=== PATIENT | male | born 1990 | race Caucasian/White ===

== ENCOUNTER 2024-03-21 10:31 | Outpatient (RCR) | payer OTHER, SELFPAY ==
--- NOTE | 2024-03-21 11:50 | OT.OPOE ---
OT Outpatient Ortho Eval OT Outpatient Ortho Eval* Start: 03/21/24 09:13 Freq: Status: Active Protocol: Document 03/21/24 09:14 ROCIO (Rec: 03/21/24 11:45 [email or web address] [id number]) E-signed By Maddy Dunlap, OTR/L, CLT OT OP Ortho Eval Details Complexity Complexity Medium Insurance Information Other Insurance [facility] Outpatient History/Precautions Current Condition/Medical Diagnosis Referring Provider Dr. Flo Calvert Medical Diagnoses S61.411A, Unspecified injury of right wrist, hand and finger(s), initial encounter S69.91XA, Laceration without foreign body of right hand, initial encounter, Treatment Diagnosis Pain in R hand (thumb and middle finger) M79.641 Localized edema R60.0 Date of Onset 03/09/24 Other Precautions Thumb sutures removed by Ortho provider in clinic 03/19/24. *Recommended removing middle finger sutures in a few days. Patient was instructed to discontinue the splints and initiate finger range of motion exercises. He may return to work, but should avoid any heavy lifting or grasping until lacerations of completely healed. Other Conditions Laceration of right middle finger (Acute) S61.212A - Laceration without foreign body of right middle finger without damage to nail, initial encounter (ICD-10) Laceration of thumb, right ( Acute) S61.011A - Laceration without foreign body of right thumb without damage to nail, initial encounter (ICD-10) Medical/Functional History Medical History Reviewed Yes Prior Level of Function/Mobility Patient fully Indep. 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 Injury occurred after his right hand was struck by a ceiling fan while traveling in [facility]. The injury caused lacerations to the dorsal aspect of his thumb over the MCP joint into the radial aspect of his middle finger proximal phalanx. Following the injury he was seen at a hospital in [facility] where wounds were thoroughly irrigated and closed, and he was provided with IV antibiotics. His tetanus is up-to-date. Reportedly, there were no injuries to the tendons and x- rays of the hand were negative for fracture. Since injury, he has been wearing a thumb spica splint and on [place] splint for his middle finger. His chief compliant now is stiffness in his thumb and fingers with minimal pain. He also reports some numbness on the dorsal aspect of his middle finger and thumb. Pain Assessment Pain Pain Yes Pain Comments 03/18 Hand Pinch/Financial Auditor Strength Hand Pinch/Financial Auditor Strength Hand Pinch/Financial Auditor Strength Left Hand,Right Hand Left Hand Financial Auditor Strength Position 1 in Elbow 95 Flexion (lbs) Financial Auditor Strength Position 2 in Elbow 102 Extension (lbs) Lateral Pinch Strength (lbs) 24 Three Point Pinch (lbs) 17 Tip Pinch Strength (lbs) 13 Right Hand Financial Auditor Strength Position 1 in Elbow 40 Flexion (lbs) Financial Auditor Strength Position 2 in Elbow 90 Extension (lbs) Lateral Pinch Strength (lbs) 17 Three Point Pinch (lbs) 9 Tip Pinch Strength (lbs) 12 OT Objective Data Hand Hand Dominance Right Hand Function Musculoskeletal: Right hand was examined. There was a laceration over the dorsal aspect of the thumb at the level of the MCP joint and a laceration on the dorsal radial aspect of the middle finger at the level of the proximal phalanx. Both lacerations were intact with no warmth, erythema, or drainage. FDP, FDS, and finger extensors are intact to the middle finger. Thumb abduction, adduction, and IP/ MCP flexion and extension were intact flexion. Observations/Posture/Limb Appearance Objective Observations R hand thumb to base of small finger has a 2 cm lag Sensation Sensation Assessment Summary Comments There was an area of decreased sensation to the dorsal aspect of the thumb distal to the laceration into the dorsal radial aspect of the middle finger at the level of the 2nd phalanx. Volar sensation was intact to all digits and thumb. Thumb and fingers were all warm and well perfused with good capillary refill. OT Problems Problems Problems Decreased Strength,Decreased Range of Motion,Decreased Dexterity,Decreased Coordination,Sensory Sensitivity,Lifting,Gripping, Pinching Other Problems Writing,Opening Containers, Dressing,Computer,Fasteners Patient Potential Excellent Assessment Assessment Assessment Patient was seen by Ortho on with referral to occupational therapy for finger range of motion, strengthening, and edema control. Stitches were removed from the R thumb at the Ortho apt two days ago, stiches are still present in the middle finger (patient states he will remove these in a day or two) . Patient is returning to work in 4 days (Monday the ). He wishes to have a HEP that he will work on Independently and return to therapy if needed. Patient was provided with [employer] card, and can call or e-mail if any issues arise or if he has any questions. Possible Eval only. Occupational Therapy Treatment Plan - OP Potential Rehabilitation Potential Good Set Goals Goals Set with Patient Yes Goals Goals 1. Patient will be discharged from therapy once their have achieved >90% of normal AROM and Strength in the effected limb. 2. Through active participation in skilled OT sessions, patient will maximize post-surgical wound healing to prevent infection, minimize functional/cosmetic sequelae of scarring. Target Date 6 weeks Treatment Plan Treatment Plan Evaluation,Edema Control,Joint Mobilization,Manual Therapy, Ultrasound,Wound Care/Scar Management,Therapeutic Exercise,Therapeutic Activities,Self Care/Home Management,Education Expected Frequency As Needed Expected Duration 12 Comment Summary Possible EVAL only, patient will work on HEP and contact therapist if any problems/ questions arise Home Program Home Program Home Program Initiated Home Program Specifics Access Code: [email or web address] URL: [email or web address]/ Date: 03/21/2024 Prepared by: Maddy Dunlap Exercises - Seated Composite Thumb Flexion AROM - 1 x daily - 7 x weekly - 3 sets - 10 reps - Thumb AROM Opposition - 1 x daily - 7 x weekly - 3 sets - 10 reps - Thumb AROM Radial Abduction and Adduction - 1 x daily - 7 x weekly - 3 sets - 10 reps - Seated Thumb Extension - 1 x daily - 7 x weekly - 3 sets - 10 reps - Thumb AROM MP Blocking - 1 x daily - 7 x weekly - 3 sets - 10 reps - Thumb AROM IP Blocking - 1 x daily - 7 x weekly - 3 sets - 10 reps - Thumb Stabilization: Alphabet on Ball (NMRE) - 1 x daily - 7 x weekly - 3 sets - 10 reps - Thumb Stabilization: C Position Isometric Around Ball - 1 x daily - 7 x weekly - 3 sets - 10 reps - Thumb Stabilization Opposition First Dorsal Interosseous: Ball Rolling Retraining (Closed Kinetic Chain) - 1 x daily - 7 x weekly - 3 sets - 10 reps - Thumb Stabilization: Rolling Ball in Hand (NMRE) - 1 x daily - 7 x weekly - 3 sets - 10 reps - Thumb Stabilization: Find Numbers On A Ball (NMRE) - 1 x daily - 7 x weekly - 3 sets - 10 reps - Resisted Finger Extension and Thumb Abduction - 1 x daily - 7 x weekly - 3 sets - 10 reps Certification Certification Statement I Certify That: Therapy Services Provided, Therapy Plan Established, Therapy Plan Reviewed Certification Information Clinic ID # [id number] Initial Certification Date 03/21/24 Recertification Due Date 06/19/24 Provider Signature Required Yes Provider Signature Shows Agreement With POC & Medical Necessity Physician NPI Number Write NPI# Here Physician Comment/Change Comment or Changes Physician Signature & Date Requested Please Sign/Date Here
== END 2024-06-25 09:24 | disposition home or self-care (01) ==
PROVIDERS: Visit Provider Orthopaedic Surgery
DX: S61.411A Laceration without foreign body of right hand, initial encounter (principal); S69.91XA Unspecified injury of right wrist, hand and finger(s), initial encounter; Z51.89 Encounter for other specified aftercare
CPT/HCPCS: 97110; 97166; X5282